=== PATIENT | female | born 1950 | race Caucasian/White ===

== ENCOUNTER 2019-01-08 15:49 | Emergency (ER) | payer MEDICARE, SELFPAY ==
[2019-01-08] VITALS (7 sets, daily range): BP systolic 110–133; BP diastolic 56–71; PULSE 85–113; RESP 14–16; TEMP 36.7; O2SAT 95–98; BMI 17.7
--- NOTE | 2019-01-08 16:10 | CM.ED ---
SOCIAL WORK CRISIS SENT PATIENT TO EMERGENCY DEPARTMENT. SPOKE WITH CARLOS AT THE [facility] WHO REPORTS WILL BE BRINGING IN PINK SLIP. STAFF UPDATED. CRISIS FOLLOWING FOR DISPOSITION. Jade MARTINEZ, LAP CHECKER, CARETAKER.
--- NOTE | 2019-01-08 16:22 | ED.DCSUM_ITS ---
- ER Visit Summary Date of Service: 01/08/19 Chief Complaint: Suicidal ideation History of Present Illness: The patient is a 68 F with depression and suicidal thoughts that is been getting worse over the past 2 months. Patient states she is having suicidal thoughts but has not acted on them because she does not want to upset her family members that may find her. Patient states she is thought of shooting herself or stabbing herself but has not acted on this. Patient was seen by crisis and was referred to the emergency department for medical clearance. Physical Examination: Vital signs are stable. Patient is afebrile. Patient is in no acute distress. Oral mucosa is pink and moist. Neck is supple. Trachea is midline. There is no JVD. Heart was regular rate and rhythm. Lungs are clear and equal bilaterally. Abdomen is soft and nontender. Cranial nerves II through XII are intact. There are no focal motor or sensory deficits noted. Extremities are intact. There is no calf tenderness or edema. Radial and pedal pulses are equal bilaterally. Test Results: CBC was within normal limits. Basic metabolic profile was obtained and showed a glucose of 290 but was otherwise within normal limits. Serum alcohol level is pending. Urinalysis and urine tox screen was ordered and is pending. Emergency Department Course and Treatment: She is medically cleared for psychiatric evaluation. Crisis counselor is in to evaluate the patient and will attempt to place the patient in a psychiatric facility. Patient was accepted to [facility] to the geropsychiatric unit. Patient will be transferred t here [facility]. Disposition: Transfer to psychiatric facility Impression: Depression with suicidal ideation This note was generated with [employer] dictation software. It may contain incorrect words, spelling, and punctuation that were not noted in review of the chart prior to signing ED Disposition - Plan for ED Patient: Disposition: Psychiatric Hospital or Unit Diagnosis: Depression with suicidal ideation Referrals: Care Physician,No Primary [Primary Care Provider] -
[2019-01-08 17:11] LABS: Absolute Lymphocyte Count 2.05 X10^3/uL (0.83-4.51); Absolute Neutrophil Count 4.1 X10^3/uL (2.0-7.7); Basophil# 0.01 X10^3/uL; Basophil% 0.1 % (0-1); Eosinophil# 0.01 X10^3/uL; Eosinophils% 0.1 % (0-5); Hematocrit 46.7 % (37-47); Hemoglobin 16.4 g/dL (12.0-15.0); Lymphocyte # 2.05 X10^3/ul (4.0); Lymphocyte % 30.7 % (19-41); Mean Corp Hgb Conc 35.1 g/dL (32-36); Mean Corpuscular Hgb 31.8 pg (27.0-32.0); Mean Corpuscular Volume 90.7 fL (81-99); Mean Platelet Vol. 10.2 fl (6.2-12.0); Monocyte# 0.44 X10^3/uL; Monocyte% 6.6 % (0-10); NRBC Flagged by Analyzer 0 % (0-5); Neutrophil # 4.14 X10^3/uL (2.7-7.7); Neutrophil % 62.2 % (47-70); Platelet Count 157 K/mm3 (150-450); RBC Distribution Width CV 12.1 % (11.6-14.6); RBC Distribution Width SD 39.6 fl (35.1-43.9); Red Blood Count 5.15 M/mm3 (4.2-5.4); White Blood Count 6.7 K/mm3 (4.4-11.0)
[2019-01-08 17:24] LABS: ALB/GLOB Ratio 0.8 RATIO (0.9-2.4); AST(SGOT) 11 U/L (15-37); Alanine Aminotransfer ALT/SGPT 20 U/L (13-56); Albumin, Serum 3.4 g/dL (3.2-5.0); Alkaline Phosphatase 65 U/L (45-117); Anion Gap 7 (5-15); BUN 17 mg/dL (7-18); BUN/Creat Ratio 27.7 RATIO (10-20); Chloride 99 mmol/L (98-107); Creatinine, Serum 0.61 mg/dL (0.55-1.02); EST Glomerular Filtration Rate 102 mL/min (>60); Est Glom Filt Rate - Afr Amer 124 mL/min (>60); Estimated Creatinine Clearance 39.92 ml/min; Globulin 4.1 g/dL (2.2-4.2); Glucose 290 mg/dL (74-106); Potassium 3.6 mmol/L (3.5-5.1); Protein, Total 7.5 g/dL (6.4-8.2); Sodium Level 136 mmol/L (136-145)
[2019-01-08 17:41] LABS: Alcohol, Blood (Medical)-Serum < 3.0 mg/dL
[2019-01-08 17:52] LABS: Bacteria 0 SEEN /hpf (None Seen); Mucous, Urine 0 SEEN /hpf (<or=2+); Red Blood Cells-Urine 0 SEEN /hpf (0-5); Squamous Epithelial Cells - UA 0 SEEN /hpf (5-10); White Blood Cells 0 SEEN /hpf (0-5)
[2019-01-08 17:59] LABS: Color, Urine Yellow (Yellow); Glucose, Dipstick 1000 mg/dl (Normal); Ketone-Dipstick 50 mg/dl (Negative); Leukocyte Esterase-Dipstick Negative /ul (Negative); Nitrite-Dipstick Negative (Negative); Occult Blood-Urine Negative /ul (Negative); Protein-Dipstick 30 mg/dl (Negative); Specific Gravity, Urine 1.015 (1.002-1.030); Urine Bilirubin Dipstick Negative (Negative); Urine Clarity Clear (Clear); Urine Urobilinogen Normal (Normal); Urine pH 6.5 (5.0 - 8.0)
[2019-01-08 18:11] LABS: Amphetamine Urine VISTA NEGATIVE (<1000 ng/mL); Barbiturate Urine VISTA NEGATIVE (< 200 ng/mL); Benzodiazepine Urine VISTA NEGATIVE (< 200 ng/mL); Cocaine Urine VISTA NEGATIVE (< 300 ng/mL); Ecstacy Urine VISTA NEGATIVE (< 500 ng/mL); Methadone Urine VISTA NEGATIVE (< 300 ng/mL); PCP Urine VISTA NEGATIVE (< 25 ng/mL); THC Urine VISTA NEGATIVE (< 50 ng/mL); Vista UDS pH Range 6
--- NOTE | 2019-01-08 23:18 | ED.RN ---
SONYA RAYA, PT ACCEPTED TO [facility], INFO GIVEN TO RN FOR REPORT
--- NOTE | 2019-01-11 15:03 | ED.RN ---
belongings picked up by her sister , pallavi.
== END 2019-01-09 01:01 ==
PROVIDERS: Emergency Provider Emergency Medicine
DX: F32.9 Major depressive disorder, single episode, unspecified (principal); R45.851 Suicidal ideations; J34.89 Other specified disorders of nose and nasal sinuses; R05 Cough; Z72.0 Tobacco use
CPT/HCPCS: 80053; 80307; 80320; 81001; 85025; 99285; G0480